=== PATIENT | male | born 1970 | race Caucasian/White ===

== ENCOUNTER → 2022-05-31 | Outpatient (REF) ==
[~2022-05-31] MED LIST: FOLI1TAB OR; MULTIVIT; PERC5TAB8 OR; PRIL20CA OR; THIA100T OR
== END ==
LOC: M PLAIMG 10:08
PROVIDERS: ATTEND Internal Medicine
DX: Z00.00 Encounter for general adult medical examination without abnormal findings (principal)

== ENCOUNTER → 2025-02-05 | Outpatient (REF) | LOC: M PLAIMG 12:58 | PROVIDERS: ATTEND Internal Medicine | DX: R52 Pain, unspecified (principal) ==